=== PATIENT | male | born 1985 | race Caucasian/White ===

== ENCOUNTER 2024-06-19 21:57 | Emergency (ER) | payer SELFPAY ==
[~2024-06-19] VITALS: Ht 177.8 cm; Wt 72.6 kg
[2024-06-19 22:10] VITALS: BP 134/96; TEMP 98; O2SAT 99
== END 2024-06-19 22:10 | disposition left against medical advice (07) ==
LOC: ER 22:00
DX: F10.129 Alcohol abuse with intoxication, unspecified (principal); Y90.9 Presence of alcohol in blood, level not specified